=== PATIENT | female | born 2000 | race African-American/Black ===

== ENCOUNTER 2023-09-07 20:43 | Day surgery (SDC) | payer BC ==
[2023-09-07] MEDS ORDERED: hydrALAZINE 20 MG/ML VIAL SLOW IVP PRN (22:06)
[2023-09-07 23:06] LABS: Bilirubin Neg (Negative); Blood, Urine 10 (Negative); Glucose, Urine (Dipstick) Normal (Negative); Ketone, Urine Negative (Negative); Leukocyte 500 (Negative); Nitrite Negative (Negative); Protein, Urine (Dipstick) Negative (Neg-Trace)
[2023-09-07 23:07] LABS: Clarity Slightly Cloudy (Clear)
[2023-09-07 23:12] LABS: Trichomonas/HPF 1+ HPF (None Seen)
[2023-09-07 23:15] LABS: Bacteria/HPF 1+ HPF (None Seen); CAUTI Indications for Culture Pregnancy; RBC/HPF 0-3 HPF (0-3); WBC/HPF 21-50 HPF (0-3)
[2023-09-07 23:16] LABS: Squamous Epithelial 0-3 HPF (0-3)
[2023-09-07 23:18] LABS: Urine Culture Reflex Yes Yes
[2023-09-07 23:20] LABS: #Basophils 0.03 10x3/uL (0.0-0.2); #Eosinphils 0.05 10x3/uL (0.0-0.5); #Monocytes 0.76 10x3/uL (0.0-1.1); #Neutrophils 5.61 10x3/uL (1.5-8.4); %Basophils 0.4 % (0.0-2.0); %Eosinophils 0.6 % (0.0-6.0); %Lymphocytes 21.9 % (18.0-47.0); %Monocytes 9.1 % (0.0-10.0); %Neutrophils 67.3 % (40.0-75.0); Hematocrit 29.2 % (34.9-44.5); Hemoglobin 9.5 g/dL (12.0-15.5); Mean Corpuscular HGB CONC 32.5 g/dL (32.0-36.0); Mean Corpuscular Hemoglobin 28.7 pg (27.0-33.0); Mean Corpuscular Volume 88.2 fL (81.6-98.3); Mean Platelet Volume 12.2 fL (7.4-10.4); Platelet Count 118 10x3/uL (150-450); RBC Distribution Width 14.5 % (11.5-14.5); Red Blood Cell (RBC) Count 3.31 10x6/uL (3.90-5.03); White Blood Cell (WBC) Count 8.3 10x3/uL (3.5-10.5)
[2023-09-07] MEDS: Cyclobenzaprine 10 MG TAB PO SCH (23:50)
[2023-09-08] MEDS: Clotrimazole 2% 3 Day Vag Cr 22.2 GM TUBE VAG SCH (00:08)
[2023-09-08] MEDS: metroNIDAZOLE 500 MG TAB PO SCH (00:08)
[2023-09-08] MEDS: Nitrofurantoin Monohyd/M-Cryst 100 MG CAP PO SCH (00:34)
[2023-09-08 01:29] LABS: Platelet Adequacy Comment Appears Decreased; RBC Morph Comment Within Normal Limits
[2023-09-08] MEDS ORDERED: fentaNYL/Ropivacaine Epidural 100 ML ONE (06:47)
[2023-09-08] MEDS ORDERED: Penicillin G Potassium 5 MILL.UNITS VIAL ONE (07:40)
== END 2023-09-08 00:45 | disposition home or self-care (01) ==
LOC: CSHLD/OP 20:43
PROVIDERS: ATTEND Student in an Organized Health Care Education/Training Program
DX: O47.1 False labor at or after 37 completed weeks of gestation (principal); O46.93 Antepartum hemorrhage, unspecified, third trimester; O99.013 Anemia complicating pregnancy, third trimester; D50.9 Iron deficiency anemia, unspecified; O99.113 Other diseases of the blood and blood-forming organs and certain disorders involving the immune mechanism complicating pregnancy, third trimester; D69.6 Thrombocytopenia, unspecified; O23.593 Infection of other part of genital tract in pregnancy, third trimester; A59.9 Trichomoniasis, unspecified; O23.43 Unspecified infection of urinary tract in pregnancy, third trimester; O26.843 Uterine size-date discrepancy, third trimester; Z3A.38 38 weeks gestation of pregnancy
CPT/HCPCS: 81001; 85025; 87086; 87480; 87510; 87660

== ENCOUNTER 2023-09-08 06:53 | Inpatient (IN) | payer BC, OTHER ==
[~2023-09-08 06:53] MED LIST: Carboprost 250 MCG/ML AMP IM PRN; Diphenoxylate HCl/Atropine Tablet PO PRN; Ibuprofen 800 MG TAB PO PRN; Lactated Ringer's 1,000 ML IV SCH; Lidocaine 1% (PF) 30 ML VIAL SC PRN; Methylergonovine 0.2 MG/ML VIAL IM PRN; Misoprostol 200 MCG TAB RC PRN; Oxytocin 30 units/NS 500 ML 500 ML IV SCH; Promethazine HCl 25 MG/ML VIAL IM PRN; Tranexamic Acid 1,000 MG/10 ML VIAL IVP PRN; hydrALAZINE 20 MG/ML VIAL SLOW IVP PRN
[2023-09-08] MEDS: fentaNYL 2 mcg/Ropivacaine 0.2% Epidural 100 ML CADD EPIDURAL SCH (07:25)
[2023-09-08] MEDS: Penicillin G Potassium 5 MILL.UNITS in Sodium Chloride 0.9% 100 ML IVPB SCH (07:46)
[2023-09-08 07:47] LABS: Hematocrit 32.8 % (34.9-44.5); Hemoglobin 10.9 g/dL (12.0-15.5); Mean Corpuscular HGB CONC 33.2 g/dL (32.0-36.0); Mean Corpuscular Hemoglobin 28.9 pg (27.0-33.0); Mean Platelet Volume 13.4 fL (7.4-10.4); Platelet Count 134 10x3/uL (150-450); RBC Distribution Width 14.5 % (11.5-14.5); Red Blood Cell (RBC) Count 3.77 10x6/uL (3.90-5.03); White Blood Cell (WBC) Count 8.3 10x3/uL (3.5-10.5)
[2023-09-08] MEDS: Ondansetron PF 4 MG/2 ML Vial IVP PRN (08:13)
[2023-09-08 08:23] LABS: Hep B Surf Ag - L&D NonReactive S/CO (NonReactive)
[2023-09-08 08:24] LABS: HBsAg Index 0.23 S/CO (0-0.99); Syphilis Antibody Nonreactive (Nonreactive); Syphilis Antibody Index 0.16 S/CO (<1.00 Non-Reactive)
[2023-09-08] MEDS: Oxytocin 30 units/NS 500 ML 500 ML IVPB SCH (08:54)
[2023-09-08] MEDS ORDERED: Acetaminophen 500 MG TAB PO PRN (09:00)
[2023-09-08] MEDS ORDERED: Oxytocin 30 units/NS 500 ML 500 ML IV SCH ×2 (09:00→09:15)
[2023-09-08] MEDS ORDERED: Lanolin Ointment 7 GM TUBE TOP PRN (09:02)
[2023-09-08] MEDS ORDERED: hydrALAZINE 20 MG/ML VIAL SLOW IVP PRN (09:02)
[2023-09-08] MEDS ORDERED: Ondansetron PF 4 MG/2 ML Vial IVP PRN ×2 (09:02→10:47)
[2023-09-08] MEDS ORDERED: Bisacodyl 10 MG SUPP PR PRN ×2 (09:02)
[2023-09-08] MEDS ORDERED: Misoprostol 200 MCG TAB VAG PRN (09:02)
[2023-09-08] MEDS ORDERED: Milk Of Magnesia 30 ML UDCUP PO PRN ×2 (09:02)
[2023-09-08] MEDS ORDERED: Methylergonovine 0.2 MG/ML VIAL IM PRN (09:02)
[2023-09-08] MEDS ORDERED: diphenhydrAMINE 25 MG CAP PO PRN (09:02)
[2023-09-08] MEDS ORDERED: Ferrous Sulfate 325 MG TAB PO SCH (09:15)
[2023-09-08] MEDS ORDERED: Penicillin G 2.5 MILL.units 2.5 MILL.UNITS in Premix 1 BAG IVPB SCH (09:30)
[2023-09-08] MEDS ORDERED: Lactated Ringer's 500 ML IV PRN (10:47)
[2023-09-08] MEDS ORDERED: Promethazine HCl 25 MG/ML VIAL IM PRN (10:47)
[2023-09-08] MEDS ORDERED: Moisturizing Cream (Eucerin) 113 GM JAR TOP PRN (10:47)
[2023-09-08] MEDS ORDERED: Acetaminophen 325 MG TAB PO PRN (10:47)
[2023-09-08] MEDS ORDERED: ePHEDrine Sulfate 50 MG/10 ML VIAL SLOW IVP PRN (10:47)
[2023-09-08] MEDS ORDERED: diphenhydrAMINE 50 MG/ML VIAL IVP PRN (10:47)
[2023-09-08] MEDS ORDERED: Naloxone HCl 0.4 mg/ml Vial IVP PRN ×2 (10:47)
[2023-09-08] MEDS ORDERED: Communication Order-Pharmacy FS SCH (11:00)
[2023-09-08] MEDS: Ibuprofen 800 MG TAB PO SCH (11:09)
[2023-09-08 11:13] VITALS: BMI 35.0
[2023-09-08] MEDS ORDERED: Bupivacaine 0.25% HCL 30 ML VIAL ONE (12:36)
[2023-09-08] MEDS ORDERED: ePHEDrine Sulfate 50 MG/10 ML VIAL ONE (12:36)
[2023-09-08] MEDS: Lactated Ringer's 1,000 ML IV SCH (13:34)
[2023-09-08] MEDS: Boostrix 0.5 ML (Tdap) VIAL (>/=7 yrs of age) IM ONE (13:34)
[2023-09-08] MEDS ORDERED: Ibuprofen 800 MG TAB PO SCH (14:00)
[2023-09-08] MEDS: Ferrous Sulfate 325 MG TAB PO SCH (18:04)
[2023-09-08] MEDS: metroNIDAZOLE 500 MG TAB PO SCH (20:24)
[2023-09-08] MEDS: Docusate 100 MG CAP PO SCH (20:24)
[2023-09-08] MEDS ORDERED: Docusate 100 MG CAP PO SCH (21:00)
[2023-09-09] MEDS: Prenatal Vitamin 1 TAB PO SCH (08:22)
[2023-09-09] MEDS ORDERED: Prenatal Vitamin 1 TAB PO SCH (09:00)
[2023-09-09 19:24] VITALS: BP 114/63; TEMP 98.8
[2023-09-09] MEDS ORDERED: Ibuprofen 800 MG TAB PO SCH (23:59)
== END 2023-09-09 21:04 | disposition home or self-care (01) | DRG 806 ==
LOC: CSHLD/OP 06:53 → CSHLD 08:01 → CSHPP 11:35
PROVIDERS: ADMIT Family Medicine; ATTEND Family Medicine
PROC: 10E0XZZ Delivery of Products of Conception, External Approach (ICD-10-PCS; principal; 2023-09-08)
PROC: 3E033XZ Introduction of Vasopressor into Peripheral Vein, Percutaneous Approach (ICD-10-PCS; 2023-09-08)
DX: O99.02 Anemia complicating childbirth (principal); O23.43 Unspecified infection of urinary tract in pregnancy, third trimester; Z37.0 Single live birth; O98.32 Other infections with a predominantly sexual mode of transmission complicating childbirth; O98.82 Other maternal infectious and parasitic diseases complicating childbirth; O99.113 Other diseases of the blood and blood-forming organs and certain disorders involving the immune mechanism complicating pregnancy, third trimester; O23.593 Infection of other part of genital tract in pregnancy, third trimester; D50.9 Iron deficiency anemia, unspecified; Z3A.38 38 weeks gestation of pregnancy; O99.824 Streptococcus B carrier state complicating childbirth; A59.00 Urogenital trichomoniasis, unspecified; O69.81X0 Labor and delivery complicated by cord around neck, without compression, not applicable or unspecified; O46.93 Antepartum hemorrhage, unspecified, third trimester; O99.013 Anemia complicating pregnancy, third trimester; D69.6 Thrombocytopenia, unspecified; A59.9 Trichomoniasis, unspecified; O26.843 Uterine size-date discrepancy, third trimester
CPT/HCPCS: 51702; 81001; 85025; 85027; 86780; 86850; 86900; 86901; 87086; 87340; 87480; 87510; 87660; 99285; J0665; J2405; J2540; J2590; J3490

== ENCOUNTER 2024-11-04 12:12 | Emergency (ER) | payer BC, OTHER ==
[2024-11-04 13:12] LABS: #Basophils Less than 0.03 10x3/uL (0.0-0.2); #Eosinophils 0.10 10x3/uL (0.0-0.5); #Monocytes 0.71 10x3/uL (0.0-1.1); #Neutrophils 4.79 10x3/uL (1.5-8.4); %Basophils 0.3 % (0.0-2.0); %Eosinophils 1.3 % (0.0-6.0); %Lymphocytes 23.8 % (18.0-47.0); %Monocytes 9.5 % (0.0-10.0); %Neutrophils 64.4 % (40.0-75.0); Hematocrit 28.7 % (34.9-44.5); Hemoglobin 9.5 g/dL (12.0-15.5); Mean Corpuscular Hemoglobin 28.9 pg (27.0-33.0); Mean Corpuscular Volume 87.2 fL (81.6-98.3); Platelet Count 150 10x3/uL (150-450); Red Blood Cell (RBC) Count 3.29 10x6/uL (3.90-5.03); White Blood Cell (WBC) Count 7.44 10x3/uL (3.5-10.5)
[2024-11-04 13:24] LABS: Glucose, Urine (Dipstick) Normal (Negative); Leukocyte 25 (Negative); Protein, Urine (Dipstick) 15 mg/dl (Neg-Trace); Specific Gravity, Urine 1.020 (1.005-1.030)
[2024-11-04 13:28] LABS: ALT (SGPT) 18 U/L (Less than 34); AST (SGOT) 25 U/L (11-34); Albumin 3.0 g/dL (3.1-4.5); Alkaline Phosphatase 79 U/L (40-110); Anion Gap 10 mmol/L (10-20); BUN (Urea Nitrogen) 6 mg/dL (7.0-18.7); Bilirubin, Total 0.1 mg/dL (0.3-1.2); Calc. Creatinine Clearance 0 mL/min (70-130); Calcium 8.7 mg/dL (7.8-10.44); Carbon Dioxide 23 mmol/L (22-29); Chloride 106 mmol/L (98-107); Globulin 3.2 g/dL (2.4-3.5); Glucose 96 mg/dL (70-105); Potassium 3.4 mmol/L (3.5-5.1); Sodium 136 mmol/L (136-145)
[2024-11-04 14:32] LABS: CAUTI Indications for Culture Dysuria,urgency,freq; RBC/HPF 0-3 HPF (0-3); WBC/HPF 0-3 HPF (0-3)
[2024-11-04 14:33] LABS: Bacteria/HPF 3+ HPF (None Seen)
[2024-11-04 14:34] LABS: Urine Culture Reflex No No
== END 2024-11-04 14:53 | disposition home or self-care (01) ==
LOC: CSHERS 12:12
DX: O12.02 Gestational edema, second trimester (principal); O99.891 Other specified diseases and conditions complicating pregnancy; R82.71 Bacteriuria; Z3A.20 20 weeks gestation of pregnancy
CPT/HCPCS: 36415; 80053; 81001; 85025; 99284

== ENCOUNTER 2025-02-03 20:50 | Emergency (ER) | payer BC, OTHER | END 2025-02-03 22:15 | LOC: CSHERS 20:50 | DX: O99.513 Diseases of the respiratory system complicating pregnancy, third trimester (principal); J06.9 Acute upper respiratory infection, unspecified; B97.89 Other viral agents as the cause of diseases classified elsewhere; Z3A.32 32 weeks gestation of pregnancy | CPT/HCPCS: 87428 ==

== ENCOUNTER 2025-02-21 08:59 | Day surgery (SDC) | payer BC ==
[2025-02-21 09:31] VITALS: BMI 38.0
[2025-02-21] MEDS ORDERED: hydrALAZINE 20 MG/ML VIAL SLOW IVP PRN (09:55)
[2025-02-21 10:30] LABS: Fetal Membranes Rupture No Membranes Rupture (No Rupture)
== END 2025-02-21 11:57 | disposition home or self-care (01) ==
LOC: CSHLD/OP 08:59
PROVIDERS: ATTEND Family Medicine
DX: Z03.71 Encounter for suspected problem with amniotic cavity and membrane ruled out (principal); O09.43 Supervision of pregnancy with grand multiparity, third trimester; O99.213 Obesity complicating pregnancy, third trimester; O99.013 Anemia complicating pregnancy, third trimester; O47.03 False labor before 37 completed weeks of gestation, third trimester; Z3A.35 35 weeks gestation of pregnancy; Z67.10 Type A blood, Rh positive; Z79.899 Other long term (current) drug therapy
CPT/HCPCS: 84112; 87480; 87510; 87660; 99285

== ENCOUNTER 2025-03-02 08:33 | Day surgery (SDC) | payer BC ==
[2025-03-02] MEDS ORDERED: hydrALAZINE 20 MG/ML VIAL SLOW IVP PRN (09:18)
[2025-03-02 11:28] VITALS: BMI 34.5
[2025-03-02 11:59] LABS: Glucose, Urine (Dipstick) Normal (Negative); Leukocyte 25 (Negative); Protein, Urine (Dipstick) Negative (Neg-Trace); Specific Gravity, Urine 1.010 (1.005-1.030)
[2025-03-02 12:54] LABS: CAUTI Indications for Culture Pregnancy; RBC/HPF 0-3 HPF (0-3)
[2025-03-02 12:55] LABS: Bacteria/HPF 2+ HPF (None Seen)
[2025-03-02 12:56] LABS: Urine Culture Reflex Yes Yes
== END 2025-03-02 11:40 | disposition home or self-care (01) ==
LOC: CSHLD/OP 08:33
PROVIDERS: ATTEND Family Medicine
DX: O99.891 Other specified diseases and conditions complicating pregnancy (principal); R10.20 Pelvic and perineal pain unspecified side; O09.43 Supervision of pregnancy with grand multiparity, third trimester; O99.213 Obesity complicating pregnancy, third trimester; O99.013 Anemia complicating pregnancy, third trimester; Z3A.36 36 weeks gestation of pregnancy; Z67.10 Type A blood, Rh positive
CPT/HCPCS: 81001; 87086; 99284

== ENCOUNTER 2025-03-11 19:50 | Day surgery (SDC) | payer BC ==
[2025-03-11 20:24] VITALS: BMI 33.0
[2025-03-11] MEDS ORDERED: hydrALAZINE 20 MG/ML VIAL SLOW IVP PRN (21:19)
[2025-03-11 21:37] LABS: Fetal Membranes Rupture No Membranes Rupture (No Rupture)
[2025-03-11 22:44] LABS: Glucose, Urine (Dipstick) Normal (Negative); Leukocyte Negative (Negative); Protein, Urine (Dipstick) Negative (Neg-Trace); Specific Gravity, Urine 1.005 (1.005-1.030)
[2025-03-11 22:56] LABS: Bacteria/HPF None Seen HPF (None Seen); CAUTI Indications for Culture Pregnancy; RBC/HPF None Seen HPF (0-3); WBC/HPF None Seen HPF (0-3)
[2025-03-11 22:57] LABS: Urine Culture Reflex Yes Yes
== END 2025-03-12 02:17 | disposition home or self-care (01) ==
LOC: CSHLD/OP 19:50
PROVIDERS: ATTEND Family Medicine
DX: O47.1 False labor at or after 37 completed weeks of gestation (principal); O99.213 Obesity complicating pregnancy, third trimester; E66.9 Obesity, unspecified; O99.013 Anemia complicating pregnancy, third trimester; D64.9 Anemia, unspecified; O98.313 Other infections with a predominantly sexual mode of transmission complicating pregnancy, third trimester; A59.9 Trichomoniasis, unspecified; O12.03 Gestational edema, third trimester; Z3A.37 37 weeks gestation of pregnancy
CPT/HCPCS: 76819; 81001; 84112; 87086

== ENCOUNTER 2025-03-18 19:59 | Day surgery (SDC) | payer BC ==
[2025-03-18] MEDS ORDERED: hydrALAZINE 20 MG/ML VIAL SLOW IVP PRN (20:43)
[2025-03-18 20:58] LABS: Fetal Membranes Rupture No Membranes Rupture (No Rupture)
== END 2025-03-19 01:15 | disposition home or self-care (01) ==
LOC: CSHLD/OP 19:59
PROVIDERS: ATTEND Family Medicine
DX: Z03.71 Encounter for suspected problem with amniotic cavity and membrane ruled out (principal); O09.43 Supervision of pregnancy with grand multiparity, third trimester; O99.213 Obesity complicating pregnancy, third trimester; O99.013 Anemia complicating pregnancy, third trimester; Z3A.38 38 weeks gestation of pregnancy; Z67.10 Type A blood, Rh positive; Z79.899 Other long term (current) drug therapy
CPT/HCPCS: 76819; 84112; 87480; 87510; 87660